=== PATIENT | male | born 1985 | race African-American/Black ===

== ENCOUNTER → 2017-01-15 | Outpatient (CLI) | payer MEDICAID ==
[2017-01-15 09:03] LABS: Appearance,Urine Clear (Clear); Bilirubin,Urine Negative (Negative); Glucose,Urine (UA) Negative (Negative); Ketones,Urine Negative (Negative); Leukocyte Esterase,Urine Negative (Negative); Nitrite,Urine Negative (Negative); Protein,Urine Negative (Negative); Specific Gravity,Urine 1.017 (1.001-1.035); UA Billing (MACRO vs. MICRO) CHEM; Urobilinogen,Urine <2.0 mg/dL (<2.0)
--- NOTE | 2017-01-15 10:01 | CT ---
EXAMINATION TYPE: CT abdomen pelvis w con DATE OF EXAM: 01/15/2017 8:24 AM COMPARISON: CT abdomen pelvis 30 October 2013 HISTORY: umbilical hernia CT DLP: 796.0 mGycm Automated exposure control for dose reduction was used. TECHNIQUE: Helical acquisition of images was performed from the lung bases through the pelvis. CONTRAST: Performed with Oral Contrast and with IV Contrast, patient injected with 100 mL of Omnipaque 300. FINDINGS: LUNG BASES: Some minimal dependent atelectatic changes are present, no pleural or pericardial effusio n, there may be a small hiatal hernia LIVER/GB: No significant abnormality is appreciated. PANCREAS: No significant abnormality is seen. SPLEEN: No significant abnormality is seen. ADRENALS: No significant abnormality is seen. KIDNEYS: No significant abnormality is seen. RETROPERITONEAL ADENOPATHY: None visualized REPRODUCTIVE ORGANS: No significant abnormality is seen URINARY BLADDER: No significant abnormality is seen. PELVIC ADENOPATHY: None visualized. OSSEOUS STRUCTURES: No significant abnormality is seen. BOWEL: No significant abnormality is seen. OTHER: There is some soft tissue prominence along the anterior aspect of the right lower quadrant on axial image 64 likely representing some postinflammatory change which is an interval finding. The wes endix is normal. Small umbilical hernia contains fat as on prior exam. IMPRESSION: SOME POSSIBLE POST INFLAMMATORY CHANGE ALONG THE RIGHT LOWER QUADRANT ANTERIORLY INTO THE PLEURAL FLE XION DESCRIBED. UMBILICAL HERNIA IS STABLE. NORMAL APPENDIX.
== END ==
LOC: RADCTMAIN 07:40
PROVIDERS: ATTEND Surgery
DX: K42.9 Umbilical hernia without obstruction or gangrene (principal)
CPT/HCPCS: 81003; 74177; Q9967